=== PATIENT | male | born 1965 | race Caucasian/White ===

== ENCOUNTER → 2020-10-16 | Outpatient (CLI) | payer BC, OTHER ==
[~2020-10-16] MED LIST: PHENERGAN 12.12.5 M1 PO; PROTONIX40 M1 PO; PROTONIX40 MG PO
== END ==
LOC: KOH-I 15:02
DX: M54.2 Cervicalgia (principal); M54.5 Low back pain; M25.552 Pain in left hip; M25.551 Pain in right hip; M50.321 Other cervical disc degeneration at C4-C5 level; M51.35 Other intervertebral disc degeneration, thoracolumbar region; M51.37 Other intervertebral disc degeneration, lumbosacral region
CPT/HCPCS: 72050; 72110; 73522